=== PATIENT | female | born 1950 | race Caucasian/White ===

== ENCOUNTER 2017-01-20 07:19 | Emergency (ER) | payer OTHER ==
[2017-01-20 07:52] LABS: BASOPHIL# 0.1 X 10^3uL (0.0-0.1); BASOPHILS 0.8 % (0.0-2.0); EOSINOPHILS 3.7 % (0.0-6.0); EOSINOPHILS# 0.2 X 10^3uL (0.0-0.4); HEMOGLOBIN 15.1 g/dL (12.0-16.0); LYMPHOCYTES 30.9 % (20.0-40.0); MEAN CELL VOLUME 91.2 fL (80.0-100.0); MEAN CORPUS. HGB CONCENTRATION 34.2 g/dL (32.0-36.0); MEAN CORPUSCULAR HEMOGLOBIN 31.2 pg (29.0-35.0); MEAN PLATELET VOLUME 7.5 fL (7.4-10.4); MONOCYTES 5.8 % (2.0-10.0); MONOCYTES# 0.4 X 10^3uL (0.2-1.0); NEUTROPHILS 58.8 % (54.0-75.0); NEUTROPHILS# 3.9 X 10^3uL (2.6-6.7); PLATELET COUNT 360 X 10^3uL (130-440); RED BLOOD COUNT 4.82 X 10^6uL (4.20-6.10); RED CELL DISTRIBUTION WIDTH 11.1 % (11.5-14.5); WHITE BLOOD COUNT 6.6 X 10^3uL (3.9-10.7)
[2017-01-20] MEDS ORDERED: ONDANSETRON HCL 4 MG/2 ML VIAL ONE (07:52)
[2017-01-20] MEDS ORDERED: KETOROLAC TROMETHAMINE 30 MG/ML VIAL ONE (08:02)
[2017-01-20 08:04] LABS: ALBUMIN 4.1 g/dL (3.5-5.0); ALKALINE PHOSPHATASE 62 U/L (38-126); ALT 34 U/L (9-52); AST 24 U/L (14-36); BILIRUBIN, DIRECT 0.3 mg/dL (0.0-0.4); BILIRUBIN, TOTAL 0.5 mg/dL (0.2-1.3); BLOOD UREA NITROGEN 22 mg/dL (7-17); CHLORIDE 101 mmol/L (98-107); EST GLOMERULAR FILTRATION RATE > 60 mL/min; GLUCOSE 127 mg/dL (70-100); LIPASE 136 U/L (23-300); POTASSIUM 3.6 mmol/L (3.5-5.1); SODIUM 139 mmol/L (137-145); TOTAL PROTEIN 7.4 g/dL (6.3-8.2)
[2017-01-20] MEDS ORDERED: NORMAL SALINE 500 ML IV ONE (08:08)
[2017-01-20] MEDS ORDERED: FAMOTIDINE IN SALINE, ISO-OSM 20 MG/50 ML PIGGYBACK IV ONE (08:08)
[2017-01-20 08:13] LABS: CALCIUM 10.2 mg/dL (8.4-10.2)
--- NOTE | 2017-01-20 09:33 | ER NURSING DOCUMENTATION ---
Nurse's Notes [facility] Name:Yancy Gavin Age:66 yrs Sex:Female :1950 Arrival Date:01/20/2017 Time:07:19 Bed4 Private MD:Marcia Berrios Diagnosis:Cholelithiasis w/ Colic Presentation: 01/20 07:23 Acuity: WILLIAM 2 rh 07:57 Presenting complaint: Patient states: Pt has had RUQ pain for 2 months and was supposed rh to see Dr. Berrios tomorrow for an US. However this AM the pain and nausea increased. Transition of care: Home. 07:57 Method Of Arrival: Private Vehicle rh Triage Assessment: 07:20 General: Appears in no apparent distress, Behavior is cooperative. Pain: Complains of rh pain in right upper quadrant. EENT: Oral mucosa is moist. Neuro: Level of Consciousness is awake, alert, obeys commands. Cardiovascular: Capillary refill < 3 seconds Chest pain is denied. Respiratory: Airway is patent Respiratory effort is even, unlabored, Respiratory pattern is regular, symmetrical, Breath sounds are clear bilaterally. GI: Abdomen is non- distended Bowel sounds present X 4 quads. Abdomen is tender to palpation in right upper quadrant Reports nausea. : Denies burning with urination. Derm: Skin is intact, is healthy with good turgor, Skin is pink, warm & dry. Historical: - Allergies: Azithromycin; - Home Meds: 1. indomethacin 25 mg oral cap 1 cap 3 times per day with food 2. estradiol 1 mg oral tab 1 tab once daily 3. losartan-hydrochlorothiazide 100-25 mg oral tab 1 tab once daily 4. bisoprolol-hydrochlorothiazide oral 5. allopurinol 100 mg oral tab 1 tab once daily - PMHx: GOUT; HIGH CHOLESTEROL; Hypertension; - PSHx: Hysterectomy; - Tetanus: < 10 years. - Ebola Screening: : Patient negative for fever greater than or equal to 101.5 degrees Fahrenheit, and additional compatible Ebola Virus Disease symptoms. - Immunization history: Flu Vaccine < 1 year. - Social history: Smoking status: Patient states was never smoker of tobacco. Screenin:02 Infectious Disease Risk None. Abuse screen: Denies threats or abuse. Denies injuries rh from another. Nutritional screening: No deficits noted. Assessment: 08:02 See Triage Assessment done by same RN. rh Vital Signs: 07:25 BP 182 / 91; Pulse 63; Resp 16; Temp 97.6(O); Pulse Ox 97% on R/A; Weight 58.06 kg; rh Height 5 ft. 5 in. (165.10 cm); Pain 7/10; 08:34 BP 157 / 60; Pulse 63; Resp 15; Pulse Ox 96% on R/A; Pain 4/10; rh 09:31 BP 157 / 76; Pulse 64; Resp 15; Pulse Ox 97% on R/A; Pain 2/10; rh 07:25 Body Mass Index 21.30 (58.06 kg, 165.10 cm) rh ED Course: 07:21 Patient arrived in ED. ama 07:21 Marcia Berrios MD is Private Physician. ama 07:23 Alis Flower is Primary Nurse. rh 07:23 Triage completed. rh 07:25 Notified ED Physician of patient's arrival and chief complaint. Dr. Chand notified. rh 07:25 Valuables Remains with patient Patient has correct armband on for positive rh identification. Placed in gown. Bed in low position. Call light in reach. Side rails up X 1. Warm blanket given. Pillow given. 07:37 Inserted peripheral IV: 20 gauge in left antecubital area and blood collected. rh 07:50 Garry Chand MD is Attending Physician. sc 08:27 Assisted to bathroom. rh 08:51 Garry Pennington MD is Referral Physician. sc Administered Medications: 07:43 Drug: Zofran 4 mg; Route: IVP; Infused Over: 2 mins; Site: left antecubital; rh 08:03 Follow up: Response: Nausea is decreased rh 07:51 Drug: Toradol 30 mg; Route: IVP; Site: left antecubital; rh 08:03 Follow up: Response: No adverse reaction rh 07:56 Drug: Pepcid 20 mg; Route: IVPB; Site: left antecubital; rh 08:20 Follow up: IV Status: Completed infusion; IV Intake: 50ml rh 07:57 Drug: NS 0.9% 500 ml; Route: IV; Rate: bolus; Site: left antecubital; rh 08:20 Follow up: IV Status: Completed infusion; IV Intake: 500ml rh Point of Care Testing: Urine Dip: 08:33 pH: 7.0; ; Specific [place]: 1.015; Ketones: Negative; Glucose: Negative; Protein: rh Negative; Leukocytes: Negative; Nitrite: Negative ; Blood: Negative; Bilirubin: Negative ; Urobilinogen: Normal Intake: 08:20 IV: 50ml; Total: 50ml. rh 08:20 IV: 500ml; Total: 550ml. Outcome: :22 Discharge ordered by . id 09:31 Discharged to home ambulatory. 09:31 Condition: improved 09:31 Discharge Assessment: Patient awake, alert and oriented x 3. No cognitive and/or functional deficits noted. Patient verbalized understanding of disposition instructions. 09:31 Discharge instructions given to patient, Instructed on discharge instructions, follow up and referral plans. medication usage, Demonstrated understanding of instructions, medications, Prescriptions given X 1. 09:32 IV D/Jaun 09:32 Patient left the ED. Signatures: Garry Chand MD MD sc Averdick, Andrew, Reg Reg ama Hofsess, Rachel
--- NOTE | 2017-01-20 09:33 | ER PHYSICIAN DOCUMENTATION ---
Physician Documentation [facility] Name:Yancy Gavin Age:66 yrs Sex:Female :1950 Arrival Date:01/20/2017 Time:07:19 Bed4 Private MD:Marcia Berrios ED, Scott Disposition: 01/20/17 09:22 Discharged to Home/Self Care. Impression: Cholelithiasis w/ Colic. - Condition is Good. - Discharge Instructions: Cholelithiases - BILIARY COLIC w/Gallstone (cnfrmd). - Prescriptions for Hydrocodone- Acetaminophen 5-325 mg Oral Tablet - take 1 tablet by ORAL route every 6 hours As needed; 20 tablet. - Medical Reconciliation form form. - Follow up: Garry Pennington MD; When: 4- 6 days; Reason: Continuance of care. - Problem is an ongoing problem. - Symptoms have improved. HPI: 01/20 08:47 This 66 yrs old Female presents to ER via Private Vehicle with complaints of sc Abdominal Pain. 08:47 The patient presents with abdominal pain in the upper abdomen, in the right upper sc quadrant. Onset: The symptoms/episode began/occurred 4 month(s) ago. The symptoms do not radiate. Associated signs and symptoms: Pertinent positives: nausea, Pertinent negatives: blood in stools, chest pain, constipation, diarrhea, dysuria, fever. The symptoms are described as constant. Modifying factors: The symptoms are alleviated by nothing. Severity of pain: At its worst the pain was moderate. The patient has been recently seen by a physician: the patient's primary care provider. Historical: - Allergies: Azithromycin; - Home Meds: 1. indomethacin 25 mg oral cap 1 cap 3 times per day with food 2. estradiol 1 mg oral tab 1 tab once daily 3. losartan-hydrochlorothiazide 100-25 mg oral tab 1 tab once daily 4. bisoprolol-hydrochlorothiazide oral 5. allopurinol 100 mg oral tab 1 tab once daily - PMHx: GOUT; HIGH CHOLESTEROL; Hypertension; - PSHx: Hysterectomy; - Tetanus: < 10 years. - Ebola Screening: : Patient negative for fever greater than or equal to 101.5 degrees Fahrenheit, and additional compatible Ebola Virus Disease symptoms. - Immunization history: Flu Vaccine < 1 year. - Social history: Smoking status: Patient states was never smoker of tobacco. ROS: 08:48 Constitutional: Negative for fever, chills, and weight loss. sc Eyes: Negative for injury, pain, redness, and discharge. Neck: Negative for injury, pain, and swelling. Cardiovascular: Negative for chest pain, palpitations, and edema. Respiratory: Negative for shortness of breath, cough, wheezing, and pleuritic chest pain. Back: Negative for injury and pain. Skin: Negative for injury, rash, and discoloration. 08:48 Neuro: Negative for headache, weakness, numbness, tingling, and seizure. sc 08:48 Abdomen/GI: Positive for abdominal pain, nausea. Exam: Constitutional: This is a well developed, well nourished patient who is awake, alert, and in no acute distress. Head/Face: Normocephalic, atraumatic. Eyes: Pupils equal round and reactive to light, extra-ocular motions intact. Lids and lashes normal. Conjunctiva and sclera are non-icteric and not injected. Cornea within normal limits. Periorbital areas with no swelling, redness, or edema. Neck: Trachea midline, no thyromegaly or masses palpated, and no cervical lymphadenopathy. Supple, full range of motion without nuchal rigidity, or vertebral point tenderness. No meningismus. Chest/axilla: Normal chest wall appearance and motion. Nontender with no deformity. No lesions are appreciated. Cardiovascular: Regular rate and rhythm with a normal S1 and S2. No gallops, murmurs, or rubs. Normal PMI, no JVD. No pulse deficits. Respiratory: Lungs have equal breath sounds bilaterally, clear to auscultation and percussion. No rales, rhonchi or wheezes noted. No increased work of breathing, no retractions or nasal flaring. Skin: Warm, dry with normal turgor. Normal color with no rashes, no lesions, and no evidence of cellulitis. MS/ Extremity: Pulses equal, no cyanosis. Neurovascular intact. Full, normal range of motion, negative Homans's, calves equal bilaterally. 08:49 Neuro: Awake and alert, GCS 15, oriented to person, place, time, and situation. sc Cranial nerves II-XII grossly intact. Motor strength 5/5 in all extremities. Sensory grossly intact. Cerebellar exam normal. Normal gait. 08:49 Abdomen/GI: Inspection: abdomen appears normal, Bowel sounds: normal, Palpation: abdomen is soft and non-tender. Vital Signs: 07:25 BP 182 / 91; Pulse 63; Resp 16; Temp 97.6(O); Pulse Ox 97% on R/A; Weight 58.06 kg; rh Height 5 ft. 5 in. (165.10 cm); Pain 7/10; 08:34 BP 157 / 60; Pulse 63; Resp 15; Pulse Ox 96% on R/A; Pain 4/10; rh 09:31 BP 157 / 76; Pulse 64; Resp 15; Pulse Ox 97% on R/A; Pain 2/10; rh 07:25 Body Mass Index 21.30 (58.06 kg, 165.10 cm) rh MDM: 07:28 Patient medically screened. tn 08:49 Differential diagnosis: appendicitis, bowel obstruction, cholecystitis, Cholelithiasis, sc diverticulitis. Data reviewed: vital signs, nurses notes, lab test result(s), radiologic studies, ultrasound. Data reviewed: and as a result, I will continue to observe the patient. Counseling: I had a detailed discussion with the patient and/or guardian regarding: the historical points, exam findings, and any diagnostic results supporting the discharge/admit diagnosis, lab results, radiology results, the need for outpatient follow up, for a referral to a specialist. 01/20 07:53 Order name: CBC AUTO DIF, MDIF/RMOR IF IND; Complete Time: 08:37 EDMS 01/20 08:05 Interpretation: Normal. tn 01/20 08:08 Order name: BASIC METABOLIC PANEL; Complete Time: 08:37 EDMS 01/20 08:08 Order name: HEPATIC PANEL; Complete Time: 08:37 EDMS 01/20 08:08 Order name: LIPASE; Complete Time: 08:37 EDMS 01/20 17:22 Order name: US ABD LIMITED [id number] 01/20 07:40 Order name: Iv Saline Lock; Complete Time: 07:43 01/20 07:40 Order name: NPO; Complete Time: 07:43 01/20 08:33 Order name: Urine Dip; Complete Time: 08:33 rh Dispensed Medications: 07:43 Drug: Zofran 4 mg; Route: IVP; Infused Over: 2 mins; Site: left antecubital; rh 08:03 Follow up: Response: Nausea is decreased rh 07:51 Drug: Toradol 30 mg; Route: IVP; Site: left antecubital; rh 08:03 Follow up: Response: No adverse reaction rh 07:56 Drug: Pepcid 20 mg; Route: IVPB; Site: left antecubital; rh 08:20 Follow up: IV Status: Completed infusion; IV Intake: 50ml rh 07:57 Drug: NS 0.9% 500 ml; Route: IV; Rate: bolus; Site: left antecubital; rh 08:20 Follow up: IV Status: Completed infusion; IV Intake: 500ml Point of Care Testing: Urine Dip: 08:33 pH: 7.0; ; Specific [place]: 1.015; Ketones: Negative; Glucose: Negative; Protein: rh Negative; Leukocytes: Negative; Nitrite: Negative ; Blood: Negative; Bilirubin: Negative ; Urobilinogen: Normal Signatures: Garry Chand MD MD sc Hofsess, Rachel
--- NOTE | 2017-01-20 11:31 | US REPORT ---
Emergent right upper quadrant ultrasound was performed. Examination demonstrates a 1.3 cm gallstone. A small amount of sludge is identified. Mild gallbladder wall thickening is noted. No fluid collection or ductal dilatation is seen. Images of the liver and right kidney appear unremarkable. IMPRESSION: 1. Cholelithiasis with sludge and mild gallbladder wall thickening. 2. Positive sonographic [place] sign. MTDD
== END 2017-01-20 09:33 | disposition home or self-care (01) ==
LOC: ER 07:19
DX: K80.20 Calculus of gallbladder without cholecystitis without obstruction (principal); R11.0 Nausea; I10 Essential (primary) hypertension; Z79.899 Other long term (current) drug therapy
CPT/HCPCS: 76705; 80048; 80076; 83690; 85025; 96365; 96375; 99284; J1885; J2405; J7040